=== PATIENT | female | born 1975 | race Hispanic/Latino ===

== ENCOUNTER 2023-04-02 00:17 | Emergency (ER) | payer BC, OTHER ==
[~2023-04-02] VITALS: Ht 172.7 cm; Wt 97.5 kg
[2023-04-02 00:18] VITALS: BP 156/77; PULSE 85; RESP 16
== END 2023-04-02 00:41 | disposition left against medical advice (07) ==
LOC: EDH 00:17
DX: R03.0 Elevated blood-pressure reading, without diagnosis of hypertension (principal); Z53.21 Procedure and treatment not carried out due to patient leaving prior to being seen by health care provider